=== PATIENT | male | born 1975 | race Caucasian/White ===

== ENCOUNTER 2017-11-24 06:58 | Day surgery (SDC) | payer OTHER ==
[2017-11-24] MEDS ORDERED: LIDOCAINE 2% (SDV) 5 ML INJ (07:50)
[2017-11-24] MEDS ORDERED: PROPOFOL 40 ML (07:50)
== END 2017-11-24 10:25 | disposition home or self-care (01) ==
LOC: GIL 06:58
DX: K21.0 Gastro-esophageal reflux disease with esophagitis (principal); K31.7 Polyp of stomach and duodenum; J45.909 Unspecified asthma, uncomplicated; I10 Essential (primary) hypertension; E78.00 Pure hypercholesterolemia, unspecified
CPT/HCPCS: 43239; 88305; 88312; 88313